=== PATIENT | male | born 1975 ===

== ENCOUNTER 2022-07-09 18:09 | Inpatient (IN) | payer OTHER ==
[2022-07-10 04:44] LABS: BASOPHILS ABSOLUTE AUTO 0.02 K/mm3 (0.00-0.23); BASOPHILS PERCENT AUTO 0 % (0-2); EOSINOPHILS PERCENT AUTO 0 % (0-6); Hematocrit 40.1 % (37.0-53.0); Hemoglobin 13.6 g/dL (13.5-17.5); IMMATURE GRAN ABSOLUTE AUTO 0.05 K/mm3 (0.00-0.10); IMMATURE GRAN PERCENT AUTO 0 % (0-1); LYMPHOCYTES ABSOLUTE AUTO 2.49 K/mm3 (0.84-5.20); LYMPHOCYTES PERCENT AUTO 18 % (21-46); MONOCYTES ABSOLUTE AUTO 0.99 K/mm3 (0.16-1.47); MONOCYTES PERCENT AUTO 7 % (4-13); Mean Corpuscular HGB 30.4 pg (26.0-34.0); Mean Corpuscular HGB Conc 33.9 g/dL (31.5-36.5); Mean Corpuscular Volume 90 fL (80-100); Mean Platelet Volume 11.3 fL (9.1-12.4); NEUTROPHILS PERCENT AUTO 75 % (41-73); Platelet Count 223 K/mm3 (150-400); RDW Coefficient Variation 13.2 % (11.7-14.2); RDW Standard Deviation 43.2 fL (35.1-46.3); Red Blood Cell Count 4.47 M/mm3 (4.30-5.90); White Blood Cell Count 14.25 K/mm3 (4.00-11.30)
[2022-07-10 05:05] LABS: Bun/Creatinine Ratio 20.5 (12.0-20.0); Calcium, Blood 8.5 mg/dL (8.5-10.1); Creatinine, Blood 0.93 mg/dL (0.60-1.20); Potassium, Blood 4.7 mmol/L (3.5-5.5)
--- NOTE | 2022-07-10 07:52 | NUR ---
summary admitted from [facility].alert. pain controlled with iv pain meds.LARGE umb hernia.ng patent of small amnts. flushed and returned easily. tolerating ice chips,pas on.
[2022-07-10] MEDS ORDERED: HUMIRA(CF)40 MG/0.4 SC (12:04)
[2022-07-10] MEDS ORDERED: METTREX2.5 PO (12:04)
[2022-07-10] MEDS ORDERED: CATAPRES0.1 MG PO (12:05)
[2022-07-10] MEDS ORDERED: FOLI1 PO (12:05)
[2022-07-10] MEDS ORDERED: LOPE2C PO (12:06)
[2022-07-10] MEDS ORDERED: B-12500 MC2 PO (12:07)
[2022-07-10] MEDS ORDERED: ASCO500 PO (12:08)
[2022-07-10] MEDS ORDERED: MULTI-VITAMIN1 EAC2 PO (12:09)
[2022-07-10] MEDS ORDERED: Lysine500 MG PO (12:10)
[2022-07-10] MEDS ORDERED: VITAMIN D5000 UNIT PO (12:11)
[2022-07-10] MEDS ORDERED: Amitriptyline H10 MG PO (12:12)
[2022-07-10] MEDS ORDERED: ALBU90OI INH (12:12)
[2022-07-10] MEDS ORDERED: NAPROXEN250 M1 PO (12:12)
[2022-07-10] MEDS ORDERED: TRIA15CR3 TOP (12:14)
[2022-07-10] MEDS ORDERED: OMEP20ER PO (12:15)
[2022-07-10] MEDS ORDERED: SUMA25 PO (12:15)
[2022-07-10] MEDS ORDERED: CYCL10 PO (12:17)
--- NOTE | 2022-07-10 16:35 | NUR ---
Met with pt today at request of [employer]. Pt reports wanting to remain a "Full Code" for the time being. He states due to his possible surgery, he wants to "make sure" he would be resusitated if there were any surgical complications. I assured him this is the case.
--- NOTE | 2022-07-10 17:35 | NUR ---
SUMMARY NO ACUTE CHANGES T/O SHIFT. DR ALLRED IN TO SEE PT THIS AFTERNOON AND CLAMPED NG TUBE. PT HAS DENIED NAUSEA. PASSING FLATUS. AT 1600, PT BEGAN TAKING SMALL AMOUNTS OF CLEAR LIQUIDS AND APPEARS TO BE TOLERATING. AMBULATED IN [facility] WITH MIN ASSISTANCE. SAT UP IN RECLINER DURING SHIFT. IV FLUIDS INFUSING PER ORDERS. CALL LIGHT IN REACH.
--- NOTE | 2022-07-11 07:29 | NUR ---
SUMMARY PT TOLERATING CLR LIQ.PT REPORTS PASSING FLATUS.
--- NOTE | 2022-07-11 08:45 | NUR ---
NG TUBE REMOVED BY DR. ALLRED.
--- NOTE | 2022-07-11 10:00 | NUR ---
SHIFT ASSESSMENT DOCUMENTATION COMPLETED BY CLARISSA GILLIAM STUDENT NURSE WAS REVIEWED AND THIS RN AGREES WITH SHIFT ASSESSMENT DOCUMENTATION.
--- NOTE | 2022-07-11 14:10 | NUR ---
PT HAD BM X2 AND IS TOLERATING FULL LIQUID DIET. PER DR. ALLRED PT SHOULD STAY ON FULL LIQUIDS FOR A FEW DAYS, DIET SHOULD NOT BE ADVANCED AT THIS TIME. WILL NOTIFY PT.
--- NOTE | 2022-07-11 20:52 | NUR ---
SHIFT SUMMARY PT'S NG TUBE WAS REMOVED TO DAY. PT TOLERATING A FULL LIQUID DIET. PT HAS DENIED PAIN. PT PASSING STOOL AND FLATUS. PT INDEPENDENT IN THE ROOM. REPORT GIVEN TO MARGARETH PATTERSON.
--- NOTE | 2022-07-12 08:02 | NUR ---
SHIFT SUMMARY NO ACUTE CHANGES OVERNIGHT. PT TOLERATING FULL LIQ, WITH APPETITE DENIES N/V. PASSING FLATUS, AND HAD BM. DENIES PAIN. VSS. SLEPT GOOD OVERNIGHT. WALKED IN THE HALLWAY. IND IN ROOM. IV ON R AC, SALINE LOCKED. CALL LIGHT WITHIN REACH. REPORT GIVENT TO DIANE PATTERSON.
[2022-07-12] MEDS ORDERED: Prednisone10 MG PO (12:11)
--- NOTE | 2022-07-12 12:25 | NUR ---
CALLED PRESCRIPTION INTO [facility] IN [facility] PER PT REQUEST.
--- NOTE | 2022-07-12 12:51 | NUR ---
DISCHARGE SBO/CHRONS FLARE UP PT REPORTS PAIN TOLERABLE DURING SHIFT, NO NAUSEA. TOLERATING PO WELL. AMBULATING WELL IN ROOM. IND. VOIDING, PASSING FLATUS. IV REMOVED WNL. ALL INSTRUCTIONS GONE OVER WITH PATIENT, NO FURTHER QUESTIONS. ALL BELONGINGS WITH PATIENT.
== END 2022-07-12 13:16 | disposition home or self-care (01) | DRG 386 ==
LOC: SURS 18:09 → MEDS 07-11 15:53
PROVIDERS: Family Medicine; ADMIT Internal Medicine
PROC: 0D9670Z Drainage of Stomach with Drainage Device, Via Natural or Artificial Opening (ICD-10-PCS; principal; 2022-07-10)
DX: K50.012 Crohn's disease of small intestine with intestinal obstruction (principal); K40.30 Unilateral inguinal hernia, with obstruction, without gangrene, not specified as recurrent; K42.0 Umbilical hernia with obstruction, without gangrene; K80.00 Calculus of gallbladder with acute cholecystitis without obstruction; K76.0 Fatty (change of) liver, not elsewhere classified; D72.829 Elevated white blood cell count, unspecified; L40.9 Psoriasis, unspecified; I10 Essential (primary) hypertension; B19.20 Unspecified viral hepatitis C without hepatic coma; F32.A Depression, unspecified; F90.9 Attention-deficit hyperactivity disorder, unspecified type; F43.10 Post-traumatic stress disorder, unspecified; M19.09 Primary osteoarthritis, other specified site; M51.36 Other intervertebral disc degeneration, lumbar region; Z90.49 Acquired absence of other specified parts of digestive tract; Z98.890 Other specified postprocedural states; Z89.421 Acquired absence of other right toe(s); Z88.8 Allergy status to other drugs, medicaments and biological substances; Z88.1 Allergy status to other antibiotic agents; Z85.820 Personal history of malignant melanoma of skin; Z87.891 Personal history of nicotine dependence; Z79.899 Other long term (current) drug therapy; Z79.51 Long term (current) use of inhaled steroids
CPT/HCPCS: 36415; 80048; 85025; A9270; J2920; J3010; J7030; J8610